=== PATIENT | male | born 1950 | race Two or more races ===

== ENCOUNTER 2022-03-14 16:29 | Inpatient (IN) | payer OTHER ==
[~2022-03-14] VITALS: Ht 167.6 cm; Wt 105.2 kg
[2022-03-14] MEDS ORDERED: SODIUM CHLORIDE 0.9% 1000ML BAG (SEPSIS BOLUS) IV ONE (16:45)
[2022-03-14] MEDS ORDERED: PIPERACILLIN/TAZ 3.375G PREMIX 50 ML IV ONE (16:45)
[2022-03-14] MEDS ORDERED: VANCOMYCIN 1G PREMIX 200 ML IV ONE (16:45)
[2022-03-14 17:19] LABS: MEAN CORPUSCULAR HEMOGLOBIN 31.5 pg (28.0-32.0); MEAN CORPUSCULAR VOLUME 92.6 fL (80.0-94.0); RED BLOOD CELL COUNT 4.43 mill/uL (4.7-6.1); RED CELL DISTRIBUTION WIDTH 13.7 % (11.6-14.6)
[2022-03-14 17:27] LABS: CHLORIDE 98 mEq/L (98-107)
[2022-03-14 17:28] LABS: INR 1.1; PROTHROMBIN TIME 12.1 sec (9.6-11.0)
[2022-03-14] MEDS ORDERED: POTASSIUM CHLORIDE 20MEQ TABLET SR PO NR (17:45)
[2022-03-14] MEDS ORDERED: KCL 10MEQ/50ML PREMIX 50 ML IV NR (17:45)
[2022-03-14] MEDS ORDERED: ASPIRIN 325MG EC TABLET PO NR (17:45)
[2022-03-14 17:54] LABS: PLATELET ESTIMATE DECREASED
[2022-03-14 17:55] LABS: MEAN PLATELET VOLUME 9.1 fl (7.4-10.4); PLATELET 100 x1000/uL (130-400)
[2022-03-14] MEDS ORDERED: ENOXAPARIN 80MG/0.8ML SYR SUBCUT ONE (18:15)
[2022-03-14] MEDS ORDERED: MORPHINE SULFATE 2 MG/ML CPJ (NOT FOR IM USE) IV ONE (18:15)
[2022-03-14 19:30] LABS: CLARITY URINE CLOUDY (CLEAR); COLOR URINE DARK YELLOW (YELLOW); KETONES URINE TRACE (NEGATIVE); LEUKOCYTE ESTERASE URINE TRACE (NEGATIVE); NITRITE URINE NEGATIVE (NEGATIVE); OCCULT BLOOD URINE TRACE (NEGATIVE); PH URINE 5.5 (4.5-8.0); PROTEIN URINE 2+ (NEGATIVE); SPECIFIC GRAVITY URINE 1.017 (1.005-1.030)
[2022-03-15] VITALS (35 sets, daily range): BP systolic 100–213; BP diastolic 54–104
[2022-03-15] MEDS ORDERED: IPRATROPIUM/ALBUTEROL 0.5-3(2.5)MG/3ML NEB HHN PRN (02:15)
[2022-03-15] MEDS ORDERED: ONDANSETRON HCL 4MG/2ML INJ IV PRN (02:15)
[2022-03-15] MEDS ORDERED: ACETAMINOPHEN 325MG TABLET PO PRN ×2 (02:15)
[2022-03-15] MEDS ORDERED: DOCUSATE SODIUM 100MG CAPSULE PO PRN (02:15)
[2022-03-15] MEDS ORDERED: MAGNESIUM/ALUMINUM HYDROXIDE/SIMETHICONE 30ML UDC PO PRN (02:15)
[2022-03-15] MEDS ORDERED: GUAIFENESIN 200MG/10ML SUGAR FREE UDC PO PRN (02:15)
[2022-03-15] MEDS ORDERED: ENOXAPARIN 40MG/0.4ML SYR SUBCUT SCH (02:15)
[2022-03-15] MEDS ORDERED: NALOXONE HCL 0.4MG/ML VIAL IV PRN (03:00)
[2022-03-15] MEDS ORDERED: HYDROMORPHONE HCL/PF 2MG/ML CPJ IV PRN (03:00)
[2022-03-15] MEDS: SODIUM CHLORIDE 0.9% 1,000 ML IV SCH ×4 (03:49→21:33)
[2022-03-15 04:15] LABS: HEMATOCRIT. 40.2 % (42.0-52.0); HEMOGLOBIN. 13.8 g/dL (14.0-18.0); MEAN CORPUSCULAR VOLUME 90.1 fL (80.0-94.0); MEAN PLATELET VOLUME 9.2 fl (7.4-10.4); PLATELET 57 x1000/uL (130-400); RED BLOOD CELL COUNT 4.46 mill/uL (4.7-6.1); RED CELL DISTRIBUTION WIDTH 13.8 % (11.6-14.6)
[2022-03-15 04:24] LABS: CHLORIDE 103 mEq/L (98-107)
[2022-03-15 04:30] LABS: CREATINE KINASE 827 IU/L (39-308)
[2022-03-15 04:37] LABS: CREATINE KINASE MB FRACTION 36.3 ng/mL (0.5-3.6)
[2022-03-15] MEDS: LACTATED RINGERS 1,000 ML IV SCH ×2 (04:58→15:57)
[2022-03-15] MEDS ORDERED: ENOXAPARIN 100MG/ML SYR SUBCUT SCH (06:30)
[2022-03-15] MEDS: MIDODRINE HCL 5MG TABLET PO SCH ×3 (06:41→17:06)
[2022-03-15] MEDS: PIPERACILLIN/TAZOBACTAM 3.375 G in DEXTROSE 5% WATER 50 ML IV SCH ×3 (06:56→21:33)
[2022-03-15] MEDS: FAMOTIDINE 20MG/2ML VIAL IV SCH (09:00)
[2022-03-15] MEDS ORDERED: ASPIRIN 81MG EC TABLET PO SCH (09:00)
[2022-03-15] MEDS ORDERED: VANCOMYCIN 500MG PREMIX 100 ML IV NR (09:30)
[2022-03-15] MEDS ORDERED: PHENYLEPHRINE 20 MG in DEXT 5% WATER 498 ML IV PRN (09:45)
[2022-03-15] MEDS ORDERED: PHENYLEPHRINE 50 MG in DEXTROSE 5% WATER 250 ML IV PRN (10:00)
[2022-03-15] MEDS ORDERED: POTASSIUM CHLORIDE 20MEQ TABLET SR PO SCH (10:00)
[2022-03-15 13:52] LABS: NUCLEATED RED BLOOD CELLS 1 /100 WBC; PLATELET ESTIMATE MARKEDLY DECREASED
[2022-03-15 14:13] LABS: *AMPHETAMINES SCREEN URINE NEGATIVE (NEGATIVE); *BARBITURATES SCREEN URINE NEGATIVE (NEGATIVE); *BENZODIAZEPINES SCREEN URINE NEGATIVE (NEGATIVE); *COCAINE SCREEN URINE NEGATIVE (NEGATIVE); CANNABINOID URINE SCREEN NEGATIVE (NEGATIVE); METHADONE URINE SCREEN NEGATIVE (NEGATIVE); OPIATES URINE SCREEN NEGATIVE (NEGATIVE); PHENCYCLIDINE URINE SCREEN NEGATIVE (NEGATIVE)
[2022-03-15 16:16] LABS: T4 FREE 1.12 ng/dL (0.76-1.46)
[2022-03-15 18:07] LABS: CREATINE KINASE 1951 IU/L (39-308)
[2022-03-15] MEDS ORDERED: HYDRALAZINE 20MG/ML VIAL IV PRN (20:00)
[2022-03-16] VITALS (54 sets, daily range): BP systolic 75–206; BP diastolic 41–164
[2022-03-16] MEDS: PIPERACILLIN/TAZOBACTAM 3.375 G in DEXTROSE 5% WATER 50 ML IV SCH ×3 (05:33→22:50)
[2022-03-16 05:47] LABS: HEMOGLOBIN. 13.2 g/dL (14.0-18.0); MEAN CORPUSCULAR HEMOGLOBIN 30.9 pg (28.0-32.0); MEAN CORPUSCULAR VOLUME 91.2 fL (80.0-94.0); MEAN PLATELET VOLUME 10.1 fl (7.4-10.4); RED BLOOD CELL COUNT 4.28 mill/uL (4.7-6.1); RED CELL DISTRIBUTION WIDTH 14.5 % (11.6-14.6)
[2022-03-16 06:52] LABS: CHLORIDE 108 mEq/L (98-107); CREATINE KINASE 1348 IU/L (39-308); CREATINE KINASE MB FRACTION 138.6 ng/mL (0.5-3.6); HDL CHOLESTEROL 9 mg/dL (40-59); LDL CHOLESTEROL 25 mg/dL (5-100); T4 FREE 1.02 ng/dL (0.76-1.46)
[2022-03-16] MEDS: SODIUM CHLORIDE 0.9% 1,000 ML IV SCH (09:36)
[2022-03-16] MEDS: MIDODRINE HCL 5MG TABLET PO SCH ×3 (09:36→18:23)
[2022-03-16] MEDS: FAMOTIDINE 20MG/2ML VIAL IV SCH (09:36)
[2022-03-16 09:56] LABS: BG BASE EXCESS -3.3 mmol/L (-2.0-2.0); BG CARBOXYHEMOGLOBIN 0.5 % (0.5-1.5); BG DEOXYHEMOGLOBIN 8.5 % (0.0-5.0); BG FRACTION INSPIRED OXYGEN 21; BG HCO3 ACT 19.2 mmol/L (22.0-26.0); BG OXYGEN SATURATION 91.5 % (92.0-98.5); BG PCO2 28.1 mmHg (35.0-45.0); BG PH 7.452 (7.350-7.450); BG PO2 54.4 mmHg (75.0-100.0); BG SAMPLE SITE LEFT BRACHIAL; BG TOTAL HEMOGLOBIN 14.2 g/dL (12.0-18.0); BG VENT MODE ROOM AIR
[2022-03-16] MEDS ORDERED: MAGNESIUM 2 G PREMIX 50 ML IV NR (14:15)
[2022-03-16] MEDS ORDERED: DILTIAZEM HCL 5MG/ML 5ML VIAL IV NR ×2 (15:00→16:00)
[2022-03-16] MEDS ORDERED: FUROSEMIDE 20MG/2ML VIAL IVP NR (15:00)
[2022-03-16 15:22] LABS: PLATELET ESTIMATE MARKEDLY DECREASED
[2022-03-16] MEDS ORDERED: DIGOXIN 500MCG/2ML AMP IV NR ×2 (15:30→18:00)
[2022-03-16] MEDS: NITROGLYCERIN 50MG PREMIX 250 ML IV SCH (15:30)
[2022-03-17] VITALS (105 sets, daily range): BP systolic 87–178; BP diastolic 47–105
[2022-03-17] MEDS ORDERED: FUROSEMIDE 20MG/2ML VIAL IVP SCH
[2022-03-17] MEDS: PIPERACILLIN/TAZOBACTAM 3.375 G in DEXTROSE 5% WATER 50 ML IV SCH (05:09)
[2022-03-17 05:41] LABS: HEMATOCRIT. 39.2 % (42.0-52.0); HEMOGLOBIN. 13.4 g/dL (14.0-18.0); MEAN CORPUSCULAR HEMOGLOBIN 30.7 pg (28.0-32.0); MEAN CORPUSCULAR VOLUME 90.1 fL (80.0-94.0); MEAN PLATELET VOLUME 9.5 fl (7.4-10.4); RED BLOOD CELL COUNT 4.35 mill/uL (4.7-6.1); RED CELL DISTRIBUTION WIDTH 14.5 % (11.6-14.6)
[2022-03-17 05:59] LABS: CHLORIDE 108 mEq/L (98-107)
[2022-03-17 06:01] LABS: PLATELET 45 x1000/uL (130-400)
[2022-03-17] MEDS ORDERED: LIDOCAINE HCL 1% 10 MG/ML 10ML VIAL ONE (06:54)
[2022-03-17 09:20] LABS: CREATINE KINASE 404 IU/L (39-308)
[2022-03-17 09:55] LABS: BG BASE EXCESS -4.1 mmol/L (-2.0-2.0); BG CARBOXYHEMOGLOBIN 0.1 % (0.5-1.5); BG DEOXYHEMOGLOBIN 6.9 % (0.0-5.0); BG FRACTION INSPIRED OXYGEN 36; BG HCO3 ACT 20.4 mmol/L (22.0-26.0); BG METHEMOGLOBIN 0.3 % (0.0-1.5); BG OXYGEN SATURATION 93.1 % (92.0-98.5); BG OXYHEMOGLOBIN 92.7 % (94.0-97.0); BG PCO2 36.9 mmHg (35.0-45.0); BG PH 7.361 (7.350-7.450); BG PO2 65.2 mmHg (75.0-100.0); BG SAMPLE SITE RIGHT RADIAL; BG TOTAL HEMOGLOBIN 21.6 g/dL (12.0-18.0); BG VENT MODE NASAL CANNULA
[2022-03-17] MEDS: MIDODRINE HCL 5MG TABLET PO SCH (10:01)
[2022-03-17] MEDS: FAMOTIDINE 20MG/2ML VIAL IV SCH (10:01)
[2022-03-17] MEDS ORDERED: MIDODRINE HCL 5MG TABLET PO PRN (10:30)
[2022-03-17 14:11] LABS: PLATELET ESTIMATE MARKEDLY DECREASED
[2022-03-17] MEDS: METRONIDAZOLE 500 MG PREMIX 100 ML IV SCH ×2 (14:21→23:06)
[2022-03-17] MEDS: CEFEPIME 1,000 MG in DEXTROSE 5% WATER 50 ML IV SCH (14:21)
[2022-03-17 15:34] LABS: HEMATOCRIT. 38.2 % (42.0-52.0); MEAN CORPUSCULAR HEMOGLOBIN 30.5 pg (28.0-32.0); MEAN CORPUSCULAR VOLUME 89.5 fL (80.0-94.0); MEAN PLATELET VOLUME 8.5 fl (7.4-10.4); PLATELET 62 x1000/uL (130-400); RED BLOOD CELL COUNT 4.26 mill/uL (4.7-6.1); RED CELL DISTRIBUTION WIDTH 14.6 % (11.6-14.6)
[2022-03-17] MEDS: NITROGLYCERIN 50MG PREMIX 250 ML IV SCH (15:44)
[2022-03-17] MEDS ORDERED: SODIUM CHLORIDE 0.45% 1,000 ML IV ONE (16:00)
[2022-03-17 17:50] LABS: PLATELET ESTIMATE DECREASED
[2022-03-18] VITALS (79 sets, daily range): BP systolic 112–179; BP diastolic 53–131
[2022-03-18] MEDS: CEFEPIME 1,000 MG in DEXTROSE 5% WATER 50 ML IV SCH ×2 (03:57→15:12)
[2022-03-18 05:36] LABS: BASOPHILS % 0.2 % (0.0-2.0); EOSINOPHILS % 0.6 % (0.0-5.0); HEMATOCRIT. 37.4 % (42.0-52.0); HEMOGLOBIN. 12.9 g/dL (14.0-18.0); LYMPHOCYTES % 8.1 % (20.0-50.0); MEAN CORPUSCULAR HEMOGLOBIN 30.7 pg (28.0-32.0); MEAN CORPUSCULAR VOLUME 89.4 fL (80.0-94.0); MEAN PLATELET VOLUME 8.9 fl (7.4-10.4); MONOCYTES % 5.9 % (2.0-8.0); NEUTROPHILS % 85.2 % (40.0-76.0); PLATELET 57 x1000/uL (130-400); RED BLOOD CELL COUNT 4.19 mill/uL (4.7-6.1); RED CELL DISTRIBUTION WIDTH 14.9 % (11.6-14.6)
[2022-03-18 06:16] LABS: PHOSPHORUS 1.1 mg/dL (2.5-4.9)
[2022-03-18] MEDS: METRONIDAZOLE 500 MG PREMIX 100 ML IV SCH ×3 (06:22→21:24)
[2022-03-18 08:21] LABS: BG CARBOXYHEMOGLOBIN 0.3 % (0.5-1.5); BG DEOXYHEMOGLOBIN 3.8 % (0.0-5.0); BG HCO3 ACT 23.2 mmol/L (22.0-26.0); BG METHEMOGLOBIN 0.3 % (0.0-1.5); BG OXYGEN SATURATION 96.2 % (92.0-98.5); BG OXYHEMOGLOBIN 95.6 % (94.0-97.0); BG PCO2 33.5 mmHg (35.0-45.0); BG PH 7.459 (7.350-7.450); BG PO2 79.9 mmHg (75.0-100.0); BG SAMPLE SITE RIGHT RADIAL; BG TOTAL HEMOGLOBIN 13.6 g/dL (12.0-18.0); BG VENT MODE NASAL CANNULA
[2022-03-18] MEDS ORDERED: POTASSIUM CHLORIDE INJ 40 MEQ in DEXT 5% WATER 250 ML IV ONE (08:30)
[2022-03-18] MEDS ORDERED: DEXTROSE 5% WATER 1,000 ML IV SCH (09:00)
[2022-03-18] MEDS: KCL 20MEQ/100ML X 2 FOR TOTAL KCL 40MEQ/200ML IV SCH ×2 (09:09→11:13)
[2022-03-18] MEDS: FAMOTIDINE 20MG/2ML VIAL IV SCH (09:10)
[2022-03-18] MEDS: DULOXETINE HCL 60MG DR CAPSULE PO SCH (09:10)
[2022-03-18] MEDS ORDERED: NITROGLYCERIN 50MG PREMIX 250 ML IV SCH (10:02)
[2022-03-18] MEDS: NEBIVOLOL HCL 5 MG TABLET PO SCH ×2 (10:15→17:30)
[2022-03-18] MEDS: AMLODIPINE 2.5MG TABLET PO SCH ×2 (11:13→21:00)
[2022-03-18] MEDS: NITROGLYCERIN OINT 1GM/INCH UDPKT TD SCH ×2 (11:13→17:25)
[2022-03-18] MEDS ORDERED: POTASSIUM PHOS,M-BASIC-D-BASIC 20 MMOL in DEXT 5% WATER 243.3333 ML IV NR (13:00)
[2022-03-18] MEDS ORDERED: DEXTROSE 50% WATER 50ML SYRINGE IV PRN (16:00)
[2022-03-18 17:11] LABS: ANTI-NUCLEAR ANTIBODIES DIRECT Negative (Negative)
[2022-03-18] MEDS: BLOOD SUGAR DIAGNOSTIC STRIP TEST SCH ×2 (17:24→21:23)
[2022-03-18] MEDS: INSULIN LISPRO 100 UNITS/ML SUBCUT SCH ×2 (17:29→21:23)
[2022-03-18 17:36] LABS: HEPATITIS B SURFACE ANTIGEN NEGATIVE
[2022-03-19] VITALS (52 sets, daily range): BP systolic 94–145; BP diastolic 45–83
[2022-03-19] MEDS: NITROGLYCERIN OINT 1GM/INCH UDPKT TD SCH ×4 (00:03→18:15)
[2022-03-19 02:01] LABS: PLATELET 34 x1000/uL (130-400)
[2022-03-19] MEDS: CEFEPIME 1,000 MG in DEXTROSE 5% WATER 50 ML IV SCH (03:03)
[2022-03-19 05:38] LABS: BASOPHILS % 0.4 % (0.0-2.0); EOSINOPHILS % 1.7 % (0.0-5.0); HEMATOCRIT. 32.9 % (42.0-52.0); HEMOGLOBIN. 11.5 g/dL (14.0-18.0); MEAN CORPUSCULAR HEMOGLOBIN 31.2 pg (28.0-32.0); MEAN CORPUSCULAR VOLUME 89.3 fL (80.0-94.0); MEAN PLATELET VOLUME 9.3 fl (7.4-10.4); MONOCYTES % 9.6 % (2.0-8.0); NEUTROPHILS % 71.3 % (40.0-76.0); PLATELET 80 x1000/uL (130-400); RED BLOOD CELL COUNT 3.68 mill/uL (4.7-6.1); RED CELL DISTRIBUTION WIDTH 14.4 % (11.6-14.6)
[2022-03-19] MEDS: METRONIDAZOLE 500 MG PREMIX 100 ML IV SCH ×3 (05:46→21:03)
[2022-03-19 05:48] LABS: CHLORIDE 111 mEq/L (98-107)
[2022-03-19 05:52] LABS: PHOSPHORUS 1.7 mg/dL (2.5-4.9)
[2022-03-19] MEDS: BLOOD SUGAR DIAGNOSTIC STRIP TEST SCH ×4 (07:15→20:52)
[2022-03-19] MEDS ORDERED: POTASSIUM CHLORIDE 20MEQ TABLET SR PO NR (07:15)
[2022-03-19] MEDS: INSULIN LISPRO 100 UNITS/ML SUBCUT SCH ×4 (07:50→20:52)
[2022-03-19] MEDS ORDERED: POTASSIUM PHOS,M-BASIC-D-BASIC 20 MMOL in DEXT 5% WATER 243.3333 ML IV NR (08:30)
[2022-03-19] MEDS: NEBIVOLOL HCL 5 MG TABLET PO SCH ×2 (09:09→18:14)
[2022-03-19] MEDS: FAMOTIDINE 20MG/2ML VIAL IV SCH (09:09)
[2022-03-19] MEDS: DULOXETINE HCL 60MG DR CAPSULE PO SCH (09:09)
[2022-03-19] MEDS: AMLODIPINE 2.5MG TABLET PO SCH ×2 (09:10→20:52)
[2022-03-19] MEDS: CEFEPIME 2,000 MG in DEXT 5% WATER 100 ML IV SCH ×2 (15:43→21:03)
[2022-03-20] VITALS (24 sets, daily range): BP systolic 97–161; BP diastolic 56–92
[2022-03-20] MEDS: NITROGLYCERIN OINT 1GM/INCH UDPKT TD SCH ×4 (00:28→18:22)
[2022-03-20] MEDS: METRONIDAZOLE 500 MG PREMIX 100 ML IV SCH ×3 (05:08→23:20)
[2022-03-20] MEDS: CEFEPIME 2,000 MG in DEXT 5% WATER 100 ML IV SCH ×3 (05:08→23:20)
[2022-03-20 06:16] LABS: HEMATOCRIT. 33.5 % (42.0-52.0); HEMOGLOBIN. 11.7 g/dL (14.0-18.0); MEAN CORPUSCULAR HEMOGLOBIN 31.3 pg (28.0-32.0); MEAN CORPUSCULAR VOLUME 89.6 fL (80.0-94.0); PLATELET 140 x1000/uL (130-400); RED BLOOD CELL COUNT 3.73 mill/uL (4.7-6.1); RED CELL DISTRIBUTION WIDTH 14.6 % (11.6-14.6)
[2022-03-20 06:49] LABS: CHLORIDE 110 mEq/L (98-107)
[2022-03-20 06:54] LABS: PHOSPHORUS 2.6 mg/dL (2.5-4.9)
[2022-03-20] MEDS: BLOOD SUGAR DIAGNOSTIC STRIP TEST SCH ×4 (07:50→21:00)
[2022-03-20] MEDS: INSULIN LISPRO 100 UNITS/ML SUBCUT SCH ×4 (08:20→21:00)
[2022-03-20] MEDS ORDERED: MAGNESIUM 2 G PREMIX 50 ML IV NR (09:00)
[2022-03-20] MEDS: POTASSIUM CHLORIDE 20MEQ TABLET SR PO SCH ×2 (09:00→09:10)
[2022-03-20] MEDS: DULOXETINE HCL 60MG DR CAPSULE PO SCH (09:08)
[2022-03-20] MEDS: FAMOTIDINE 20MG/2ML VIAL IV SCH (09:08)
[2022-03-20] MEDS: AMLODIPINE 2.5MG TABLET PO SCH ×2 (09:09→23:15)
[2022-03-20] MEDS: NEBIVOLOL HCL 5 MG TABLET PO SCH ×2 (09:09→18:23)
[2022-03-20] MEDS: ASPIRIN 81MG TABLET PO SCH (09:17)
[2022-03-20 10:10] LABS: PLATELET ESTIMATE NORMAL
[2022-03-21] VITALS (24 sets, daily range): BP systolic 108–150; BP diastolic 52–78
[2022-03-21] MEDS: METRONIDAZOLE 500 MG PREMIX 100 ML IV SCH ×3 (05:49→21:48)
[2022-03-21] MEDS: CEFEPIME 2,000 MG in DEXT 5% WATER 100 ML IV SCH ×3 (05:49→21:48)
[2022-03-21] MEDS: NITROGLYCERIN OINT 1GM/INCH UDPKT TD SCH ×3 (05:50→14:57)
[2022-03-21 06:09] LABS: HEMATOCRIT. 35.8 % (42.0-52.0); HEMOGLOBIN. 12.5 g/dL (14.0-18.0); MEAN CORPUSCULAR HEMOGLOBIN 31.6 pg (28.0-32.0); MEAN CORPUSCULAR VOLUME 90.2 fL (80.0-94.0); MEAN PLATELET VOLUME 8.7 fl (7.4-10.4); PLATELET 232 x1000/uL (130-400); RED BLOOD CELL COUNT 3.97 mill/uL (4.7-6.1); RED CELL DISTRIBUTION WIDTH 14.4 % (11.6-14.6)
[2022-03-21 06:18] LABS: CHLORIDE 109 mEq/L (98-107)
[2022-03-21] MEDS: BLOOD SUGAR DIAGNOSTIC STRIP TEST SCH ×4 (07:50→21:03)
[2022-03-21] MEDS: MAGNESIUM GLUCONATE 500MG TABLET PO SCH (09:00)
[2022-03-21] MEDS: FAMOTIDINE 20MG/2ML VIAL IV SCH (09:12)
[2022-03-21] MEDS: INSULIN LISPRO 100 UNITS/ML SUBCUT SCH ×4 (09:12→21:00)
[2022-03-21] MEDS: ASPIRIN 81MG TABLET PO SCH (09:12)
[2022-03-21] MEDS: POTASSIUM CHLORIDE 20MEQ TABLET SR PO SCH (09:13)
[2022-03-21] MEDS: AMLODIPINE 2.5MG TABLET PO SCH ×2 (09:13→21:03)
[2022-03-21] MEDS: NEBIVOLOL HCL 5 MG TABLET PO SCH ×2 (09:13→17:00)
[2022-03-21] MEDS: DULOXETINE HCL 60MG DR CAPSULE PO SCH (09:13)
[2022-03-21 10:23] LABS: PLATELET ESTIMATE NORMAL
[2022-03-22] VITALS (23 sets, daily range): BP systolic 98–147; BP diastolic 43–93
[2022-03-22] MEDS: NITROGLYCERIN OINT 1GM/INCH UDPKT TD SCH ×4 (00:14→17:49)
[2022-03-22 05:41] LABS: BASOPHILS % 0.7 % (0.0-2.0); EOSINOPHILS % 2.3 % (0.0-5.0); HEMATOCRIT. 34.4 % (42.0-52.0); HEMOGLOBIN. 11.9 g/dL (14.0-18.0); MEAN CORPUSCULAR VOLUME 89.7 fL (80.0-94.0); MEAN PLATELET VOLUME 8.5 fl (7.4-10.4); MONOCYTES % 6.7 % (2.0-8.0); NEUTROPHILS % 70.3 % (40.0-76.0); PLATELET 327 x1000/uL (130-400); RED BLOOD CELL COUNT 3.83 mill/uL (4.7-6.1); RED CELL DISTRIBUTION WIDTH 14.4 % (11.6-14.6)
[2022-03-22 06:05] LABS: CHLORIDE 105 mEq/L (98-107)
[2022-03-22 06:10] LABS: PHOSPHORUS 2.5 mg/dL (2.5-4.9)
[2022-03-22] MEDS: METRONIDAZOLE 500 MG PREMIX 100 ML IV SCH ×3 (06:35→22:31)
[2022-03-22] MEDS: CEFEPIME 2,000 MG in DEXT 5% WATER 100 ML IV SCH ×3 (06:36→22:32)
[2022-03-22] MEDS: INSULIN LISPRO 100 UNITS/ML SUBCUT SCH ×5 (08:20→22:47)
[2022-03-22] MEDS: BLOOD SUGAR DIAGNOSTIC STRIP TEST SCH ×4 (08:37→21:00)
[2022-03-22] MEDS: ASPIRIN 81MG TABLET PO SCH ×2 (09:18→15:16)
[2022-03-22] MEDS: FAMOTIDINE 20MG/2ML VIAL IV SCH (09:18)
[2022-03-22] MEDS: MAGNESIUM GLUCONATE 500MG TABLET PO SCH (09:18)
[2022-03-22] MEDS: POTASSIUM CHLORIDE 20MEQ TABLET SR PO SCH (09:18)
[2022-03-22] MEDS: DULOXETINE HCL 60MG DR CAPSULE PO SCH (09:18)
[2022-03-22] MEDS: AMLODIPINE 2.5MG TABLET PO SCH ×2 (09:18→22:31)
[2022-03-22] MEDS: NEBIVOLOL HCL 5 MG TABLET PO SCH ×2 (09:18→17:00)
[2022-03-22] MEDS ORDERED: IPRATROPIUM BROMIDE (0.02%) 0.5MG/2.5ML NEB HHN PRN (09:30)
[2022-03-22] MEDS ORDERED: HEPARIN 1000 UNITS/ML 10ML ONE (11:34)
[2022-03-22] MEDS ORDERED: IODIXANOL 320MG/ML 100 ML BOTTLE IV ONE ×2 (11:34→13:39)
[2022-03-22] MEDS ORDERED: FENTANYL CITRATE/PF 50MCG/ML 2ML VIAL ONE (12:38)
[2022-03-22] MEDS ORDERED: MIDAZOLAM HCL 2 MG/2 ML VIAL ONE (12:38)
[2022-03-22] MEDS ORDERED: LIDOCAINE HCL/PF 2% 20MG/ML 5 ML/VIAL ONE (12:52)
[2022-03-22] MEDS ORDERED: ASPIRIN/SOD BICARB/CITRIC ACID 324MG TAB EFF ONE (12:55)
[2022-03-22 13:00] LABS: INR 1.1; PARTIAL THROMBOPLASTIN TIME 26.3 sec (23.4-31.0); PROTHROMBIN TIME 12.1 sec (9.6-11.0)
[2022-03-22] MEDS ORDERED: CLOPIDOGREL 75MG TABLET ONE (14:02)
[2022-03-22] MEDS ORDERED: ONDANSETRON HCL 4MG/2ML INJ IV PRN (14:15)
[2022-03-22] MEDS ORDERED: ATROPINE SULFATE 1MG/10ML SYR IV PRN (14:15)
[2022-03-22] MEDS ORDERED: MORPHINE SULFATE 2 MG/ML CPJ (NOT FOR IM USE) IV PRN (14:15)
[2022-03-22] MEDS ORDERED: SODIUM CHLORIDE 0.45% 1,000 ML IV ONE (14:15)
[2022-03-22] MEDS ORDERED: ACETAMINOPHEN 325MG TABLET PO PRN (14:15)
[2022-03-22] MEDS ORDERED: CLOPIDOGREL 75MG TABLET PO NR (15:00)
[2022-03-23] VITALS (14 sets, daily range): BP systolic 96–144; BP diastolic 39–74
[2022-03-23] MEDS: NITROGLYCERIN OINT 1GM/INCH UDPKT TD SCH ×3 (00:19→12:00)
[2022-03-23 05:43] LABS: EOSINOPHILS % 2.3 % (0.0-5.0); HEMATOCRIT. 33.6 % (42.0-52.0); HEMOGLOBIN. 11.7 g/dL (14.0-18.0); LYMPHOCYTES % 22.9 % (20.0-50.0); MEAN CORPUSCULAR HEMOGLOBIN 31.3 pg (28.0-32.0); MEAN CORPUSCULAR VOLUME 89.8 fL (80.0-94.0); MEAN PLATELET VOLUME 8.3 fl (7.4-10.4); MONOCYTES % 9.1 % (2.0-8.0); NEUTROPHILS % 64.7 % (40.0-76.0); PLATELET 397 x1000/uL (130-400); RED BLOOD CELL COUNT 3.74 mill/uL (4.7-6.1); RED CELL DISTRIBUTION WIDTH 14.7 % (11.6-14.6)
[2022-03-23 05:48] LABS: CHLORIDE 106 mEq/L (98-107)
[2022-03-23] MEDS: METRONIDAZOLE 500 MG PREMIX 100 ML IV SCH ×2 (06:46→14:38)
[2022-03-23] MEDS: CEFEPIME 2,000 MG in DEXT 5% WATER 100 ML IV SCH ×2 (06:46→14:38)
[2022-03-23] MEDS: BLOOD SUGAR DIAGNOSTIC STRIP TEST SCH ×2 (08:05→12:50)
[2022-03-23] MEDS: INSULIN LISPRO 100 UNITS/ML SUBCUT SCH ×2 (08:05→13:20)
[2022-03-23] MEDS: AMLODIPINE 2.5MG TABLET PO SCH (08:37)
[2022-03-23] MEDS: FAMOTIDINE 20MG/2ML VIAL IV SCH (08:37)
[2022-03-23] MEDS: NEBIVOLOL HCL 5 MG TABLET PO SCH (08:38)
[2022-03-23] MEDS: DULOXETINE HCL 60MG DR CAPSULE PO SCH (08:38)
[2022-03-23] MEDS: POTASSIUM CHLORIDE 20MEQ TABLET SR PO SCH (08:38)
[2022-03-23] MEDS: ASPIRIN 81MG TABLET PO SCH (08:38)
[2022-03-23] MEDS: MAGNESIUM GLUCONATE 500MG TABLET PO SCH (08:39)
[2022-03-23] MEDS ORDERED: CLOPIDOGREL 75MG TABLET PO SCH (09:00)
[2022-03-23] MEDS ORDERED: LEVO750T68 MT (09:49)
[2022-03-23] MEDS ORDERED: NEBI5TAB3 PO ×2 (09:49)
[2022-03-23] MEDS ORDERED: CLOP-31 MT (09:49)
[2022-03-23] MEDS ORDERED: DULO60CA45 MT (09:49)
[2022-03-23] MEDS ORDERED: ASPI-1406 MT (09:49)
[2022-03-23] MEDS ORDERED: AMLO5TAB88 MT ×2 (09:49)
[2022-03-23] MEDS ORDERED: AMLO2.5T45 MT (10:23)
[2022-03-23] MEDS ORDERED: CRES10 MT (10:23)
[2022-03-23] MEDS ORDERED: METO-396 MT (10:23)
[2022-03-23] MEDS ORDERED: LEVOFLOXACIN 250MG TABLET PO SCH (11:00)
== END 2022-03-23 15:40 | disposition home health service (06) | DRG 853 ==
LOC: ER 16:29 → EDBEDREQ 17:36 → MICUSO 17:49 → EDBEDREQ 18:14 → CVICU 03-15 10:37
PROVIDERS: ADMIT Internal Medicine; ATTEND Internal Medicine
PROC: 0F943ZZ Drainage of Gallbladder, Percutaneous Approach (ICD-10-PCS; 2022-03-17)
PROC: 30233R1 Transfusion of Nonautologous Platelets into Peripheral Vein, Percutaneous Approach (ICD-10-PCS; 2022-03-17)
PROC: 02HV33Z Insertion of Infusion Device into Superior Vena Cava, Percutaneous Approach (ICD-10-PCS; 2022-03-19)
PROC: B548ZZA Ultrasonography of Superior Vena Cava, Guidance (ICD-10-PCS; 2022-03-19)
PROC: 027035Z Dilation of Coronary Artery, One Artery with Two Drug-eluting Intraluminal Devices, Percutaneous Approach (ICD-10-PCS; principal; 2022-03-22)
PROC: B2111ZZ Fluoroscopy of Multiple Coronary Arteries using Low Osmolar Contrast (ICD-10-PCS; 2022-03-22)
PROC: B2151ZZ Fluoroscopy of Left Heart using Low Osmolar Contrast (ICD-10-PCS; 2022-03-22)
PROC: 4A023N7 Measurement of Cardiac Sampling and Pressure, Left Heart, Percutaneous Approach (ICD-10-PCS; 2022-03-22)
DX: A41.51 Sepsis due to Escherichia coli [E. coli] (principal); I21.4 Non-ST elevation (NSTEMI) myocardial infarction; J18.9 Pneumonia, unspecified organism; J96.01 Acute respiratory failure with hypoxia; N17.0 Acute kidney failure with tubular necrosis; R65.21 Severe sepsis with septic shock; E44.0 Moderate protein-calorie malnutrition; E87.1 Hypo-osmolality and hyponatremia; E87.20 Acidosis, unspecified; I13.0 Hypertensive heart and chronic kidney disease with heart failure and stage 1 through stage 4 chronic kidney disease, or unspecified chronic kidney disease; I31.39 Other pericardial effusion (noninflammatory); M62.82 Rhabdomyolysis; K80.01 Calculus of gallbladder with acute cholecystitis with obstruction; D69.6 Thrombocytopenia, unspecified; E11.22 Type 2 diabetes mellitus with diabetic chronic kidney disease; E78.00 Pure hypercholesterolemia, unspecified; E83.42 Hypomagnesemia; E86.0 Dehydration; Z20.822 Contact with and (suspected) exposure to COVID-19; E87.6 Hypokalemia; I25.10 Atherosclerotic heart disease of native coronary artery without angina pectoris; I50.9 Heart failure, unspecified; K59.00 Constipation, unspecified; M06.9 Rheumatoid arthritis, unspecified; R74.01 Elevation of levels of liver transaminase levels; E66.9 Obesity, unspecified; D64.9 Anemia, unspecified; N18.9 Chronic kidney disease, unspecified; N28.1 Cyst of kidney, acquired; Z68.30 Body mass index [BMI] 30.0-30.9, adult; Z79.899 Other long term (current) drug therapy; Z79.02 Long term (current) use of antithrombotics/antiplatelets; Z79.82 Long term (current) use of aspirin; Z68.37 Body mass index [BMI] 37.0-37.9, adult
CPT/HCPCS: 36415; 36573; 36600; 47490; 70551; 71045; 74176; 76770; 78227; 78580; 80048; 80053; 80061; 80076; 80202; 80305; 81003; 82150; 82375; 82465; 82550; 82553; 82805; 82962; 83036; 83605; 83735; 83880; 84100; 84145; 84439; 84443; 84481; 84484; 85025; 85347; 85379; 86038; 86160; 86705; 86709; 86803; 86850; 86900; 87077; 87186; 87340; 87426; 92928; 93005; 93306; 93308; 93458; 93970; 97116; 97162; 97530; 99291; A9537; C1725; C1729; C1760; C1769; C1874; C1887; C1893; J0360; J0692; J1160; J1170; J1644; J1650; J1815; J1940; J2250; J2270; J2543; J3010; J3370; J3475; J3480; J3490; J7030; J7060; J7120; P9034; Q9967; A4315; P9036